=== PATIENT | male | born 1985 | race Caucasian/White ===

== ENCOUNTER 2023-07-16 15:22 | Emergency (ER) | payer BC ==
[~2023-07-16] VITALS: Ht 170.2 cm; Wt 81.7 kg
[2023-07-16 15:55] VITALS: BP 141/95; PULSE 91; RESP 18; TEMP 97.8; O2SAT 98
[2023-07-16] MEDS ORDERED: NEOM10DR45 RIGHT EAR (16:00)
[2023-07-16] MEDS ORDERED: CEFD300C3 PO (16:00)
== END 2023-07-16 17:41 | disposition home or self-care (01) ==
LOC: ER 15:22
DX: H66.91 Otitis media, unspecified, right ear (principal); H60.8X1 Other otitis externa, right ear; Z88.0 Allergy status to penicillin
CPT/HCPCS: 99283